=== PATIENT | female | born 1960 | race Caucasian/White ===

== ENCOUNTER 2023-05-02 06:31 | Day surgery (SDC) | payer OTHER, SELFPAY ==
[2023-04-24 08:59] VITALS: BMI 25.5
[2023-04-24 09:56] LABS: Hematocrit 36.5 % (37.0-47.0); Hemoglobin 12.4 g/dL (12.0-16.0); Platelet Count 244 10^3/uL (130-400); Red Blood Cell Count 3.65 10^6/uL (4.20-5.40); Red Cell Dist. Width 13.8 % (11.5-14.5); White Blood Cell Count 10.7 10^3/uL (4.8-10.8)
[2023-04-24 10:05] LABS: INR 0.83; PT 11.6 Sec (11.4-14.6)
[2023-04-24 10:06] LABS: APTT 26.5 Sec (23.4-35.0)
[2023-04-24 10:10] LABS: ALT (SGPT) 29 U/L (0-35); AST (SGOT) 27 U/L (14-36); Albumin 4.1 g/dl (3.5-5.0); Alkaline Phosphatase 85 U/L (38-126); Blood Urea Nitrogen 34 mg/dl (7-17); Calcium 10.7 mg/dl (8.4-10.2); Carbon Dioxide 22 mmol/L (22-30); Chloride 109 mmol/L (98-107); Estimated Creatinine Clearance 40 ml/min; Glucose 105 mg/dl (70-99); Sodium 137 mmol/L (135-145); Total Bilirubin 0.6 mg/dl (0.2-1.3); Total Protein 6.1 g/dl (6.3-8.2); eGFR 42.01
--- NOTE | 2023-04-24 12:28 | PTCARENOTE ---
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 Please see scanned EKG from PCP date 03/19/2020 showing history of inferior infarct.
--- NOTE | 2023-04-28 15:03 | SUR.OPER ---
Patients 04/24 GFR 42.01- Sheryl @ Dr. Pablo office notified
[2023-05-02] VITALS (11 sets, daily range): BP systolic 48–130; BP diastolic 27–92; BMI 25.5
[2023-05-02] MEDS: NORMOSOL-R 1000 IV (09:40)
[2023-05-02] MEDS: HEPARIN 5000 UNITS SC (09:40)
[2023-05-02] MEDS: TYLENOL 500 MG PO (09:41)
[2023-05-02 09:45] LABS: Glucose - Point of Care 124 mg/dl (70-99)
[2023-05-02 12:52] LABS: Turbo PTH 25.2 pg/ml (13.6-85.8)
[2023-05-02 13:20] LABS: Glucose - Point of Care 130 mg/dl (70-99)
[2023-05-02] MEDS: DILAUDID 0.5 MG IV ×2 (13:36→13:52)
--- NOTE | 2023-05-02 13:40 | OR.RPT ---
Operative Report
Operative Report
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
Postoperative Diagnosis: Same
Surgeon: Kade Herring M.D.
Operation: Neck exploration, Right Superior and Inferior Parathyroidectomy - 80505
Anesthesia: GET
Estimated Blood Loss: 3 cc
Drains: None
Findings: Double parathyroid adenomas
Specimen: Right superior & inferior neck nodules, rule out parathyroid adenomas
Complications: �None
Procedure:
The patient was taken to the operating room and placed in the usual supine position. After adequate general endotracheal anesthesia was established, the patient's neck was extended, prepped, and draped in the typical sterile fashion. A 4 cm
transcervical incision was made two fingerbreadths above the sternal notch. The skin incision was made with the #15 blade, and this was taken through the skin into the subcutaneous tissue. The underlying platysma muscle was divided, and subplatysmal
flaps were created superiorly to the thyroid cartilage and inferiorly to the sternal notch. Strap muscles were identified and at the midline.
Attention was turned to the patient's right side of the neck. The right thyroid lobe was mobilized medially. During this process, the right recurrent laryngeal nerve was identified and preserved throughout the surgery. The right upper & lower neck
nodules were identified and noted to be enlarged, excised, and sent to the pathology department, which showed hypercellular parathyroid glands.
The attention was turned to the left side of the neck. The left thyroid lobe was mobilized medially. During this process, the left recurrent laryngeal nerve was identified and preserved throughout the surgery. The normal-appearing left superior and
inferior parathyroid glands were identified and preserved.
After obtaining adequate hemostasis, the strap muscles were reapproximated with #3-0 Vicryl in a running fashion. The platysma muscle was reapproximated with #3-0 Vicryl in an interrupted fashion, and the skin was approximated with #4-0 Monocryl in
a running subcuticular fashion. The Steri-Strips and sterile dressings were placed. The patient tolerated the procedure well. The final instrument, needle, and sponge counts were correct. The patient was extubated and transferred to the PACU.
== END 2023-05-02 15:03 | disposition home or self-care (01) ==
LOC: SDS 06:31
PROVIDERS: ATTENDING PHYSICIAN Surgery; FAMILY PHYSICIAN Physician Assistant; REFERRING PHYSICIAN Internal Medicine Nephrology
DX: E21.0 Primary hyperparathyroidism (principal); D35.1 Benign neoplasm of parathyroid gland
CPT/HCPCS: 60500; 88305; 88332; 36415; 80053; 82962; 83970; 85027; 85610; 85730; 88331; 93005

== ENCOUNTER 2024-01-24 19:07 | Emergency (ER) | payer SELFPAY ==
[2024-01-24 19:07] VITALS: BMI 26.6
[2024-01-24 19:10] VITALS: BP 154/89
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
[2024-01-24 22:33] VITALS: BP 130/55
== END 2024-01-24 23:13 | disposition home or self-care (01) ==
LOC: EMR 19:07
PROVIDERS: EMERGENCY PHYSICIAN Emergency Medicine; FAMILY PHYSICIAN Physician Assistant
DX: S16.1XXA Strain of muscle, fascia and tendon at neck level, initial encounter (principal); S29.012A Strain of muscle and tendon of back wall of thorax, initial encounter; R51.9 Headache, unspecified; M62.838 Other muscle spasm; V49.50XA Passenger injured in collision with unspecified motor vehicles in traffic accident, initial encounter; Y92.410 Unspecified street and highway as the place of occurrence of the external cause; M47.812 Spondylosis without myelopathy or radiculopathy, cervical region; M54.30 Sciatica, unspecified side; M60.9 Myositis, unspecified; G89.29 Other chronic pain; F90.9 Attention-deficit hyperactivity disorder, unspecified type; F41.9 Anxiety disorder, unspecified; F32.A Depression, unspecified; F43.10 Post-traumatic stress disorder, unspecified; F42.9 Obsessive-compulsive disorder, unspecified; I10 Essential (primary) hypertension; E11.9 Type 2 diabetes mellitus without complications; F17.200 Nicotine dependence, unspecified, uncomplicated; F11.20 Opioid dependence, uncomplicated; Z79.4 Long term (current) use of insulin; Z98.1 Arthrodesis status; Z91.048 Other nonmedicinal substance allergy status
CPT/HCPCS: 99284; 72125